=== PATIENT | female | born 1995 | race Caucasian/White ===

== ENCOUNTER 2017-07-07 18:43 | Emergency (ER) | payer OTHER ==
[2017-07-07 18:50] VITALS: BP 119/74; PULSE 75; TEMP 98.4; BMI 25.7
[2017-07-07] MEDS ORDERED: guaiFENesin/D-METHORPHAN HB 10 ML UNIT-DOSE CUPS PO ONE (18:53)
[2017-07-07] MEDS ORDERED: guaiFENesin/D-METHORPHAN HB 10 ML UNIT-DOSE CUPS ONE (18:58)
--- NOTE | 2017-07-07 19:29 | PDOC ---
History of Present Illness - General Chief Complaint: Cold Symptoms Stated Complaint: COUGH Time Seen by Provider: 07/07/17 18:45 - History of Present Illness Initial Comments: 07/07/17 19:24 "The patient is a 22 year old female with with no significant past medical history, who presents to the ED with a cough productive of greenish phlegm for 7 days. Patient states she has been taking nyquil with little to no alleviation. Patient denies chest pain, SOB, fever, chills, nausea, vomiting, diarrhea. Patient denies dysuria, frequency, hematuria. Patient denies recent travels. Patient denies smoking cigarettes. Allergies to meds: penicillin PCP: Dr. Capone " Past History - Past Medical History Allergies/Adverse Reactions: Allergies Allergy/AdvReac Type Severity Reaction Status Date / Time Penicillins Allergy Severe Rash Verified 09/28/16 21:18 Home Medications: Ambulatory Orders NK [No Known Home Medication] 07/07/17 Asthma: No Cancer: No Cardiac Disorders: No Diabetes: No HTN: No Seizures: No Thyroid Disease: No - Immunization History Immunization Up to Date: Yes - Suicide/Smoking/Psychosocial Hx Smoking History: Never smoked Have you smoked in the past 12 months: No Number of Cigarettes Smoked Daily: 0 Cigars Per Day: 0 Information on smoking cessation initiated: No Hx Alcohol Use: No Drug/Substance Use Hx: No Substance Use Type: None Hx Substance Use Treatment: No Review of Systems - Review of Systems Comments:: 07/07/17 19:25 "GENERAL/CONSTITUTIONAL: No fever or chills. No weakness. HEAD, EYES, EARS, NOSE AND THROAT: No change in vision. No ear pain or discharge. No sore throat. CARDIOVASCULAR: No chest pain or shortness of breath. RESPIRATORY: + cough, no wheezing, or hemoptysis. GASTROINTESTINAL: No nausea, vomiting, diarrhea or constipation. GENITOURINARY: No dysuria, frequency, or change in urination. MUSCULOSKELETAL: No joint or muscle swelling or pain. No neck or back pain. SKIN: No rash NEUROLOGIC: No headache, vertigo, loss of consciousness, or change in strength/ sensation. ENDOCRINE: No increased thirst. No abnormal weight change. HEMATOLOGIC/LYMPHATIC: No anemia, easy bleeding, or history of blood clots. ALLERGIC/IMMUNOLOGIC: No hives or skin allergy. " *Physical Exam - Vital Signs Last Vital Signs Temp Pulse Resp BP Pulse Ox 98.4 F 75 20 119/74 99 07/07/17 18:44 07/07/17 18:44 07/07/17 18:44 07/07/17 18:44 07/07/17 18:44 - Physical Exam Comments: 07/07/17 19:25 "GENERAL: Awake, alert, and fully oriented, in no acute distress HEAD: No signs of trauma EYES: PERRLA, EOMI, sclera anicteric, conjunctiva clear ENT: Auricles normal inspection, hearing grossly normal, nares patent, oropharynx clear without exudates. Moist mucosa NECK: Nontender, no stepoffs, Normal ROM, supple, no lymphadenopathy, JVD, or masses LUNGS: Breath sounds equal, clear to auscultation bilaterally. No wheezes, and no crackles HEART: Regular rate and rhythm, normal S1 and S2, no murmurs, rubs or gallops ABDOMEN: Soft, nontender, normoactive bowel sounds. No guarding, no rebound. No masses EXTREMITIES: Normal range of motion, no edema. No clubbing or cyanosis. No cords, erythema, or tenderness NEUROLOGICAL: Cranial nerves II through XII intact. 5/5 strength and sensation in all extremities, Normal speech, normal gait SKIN: Warm, Dry, normal turgor, no rashes or lesions noted. " ED Treatment Course - RADIOLOGY Radiology Studies Ordered: Category Date Time Status CHEST PA & LAT [RAD] Stat Radiology 07/07/17 18:52 Stop Req - Medications Given in the ED: ED Medications Discontinued Medications Generic Name Dose Route Start Last Admin Trade Name Freq PRN Reason Stop Dose Admin Guaifenesin 10 ml 07/07/17 18:53 07/07/17 18:59 Robitussin Dm - PO 07/07/17 18:54 10 ml ONCE ONE Administration Medical Decision Making - Medical Decision Making 07/07/17 19:26 22 F with cough x 7 days. Likely viral URI vs bronchitis. - CXR to r/o PNA - supportive care 07/07/17 19:26 Pt refusing CXR as she does not wish to wait. Given clear lung exam, pt's well appearance, and lack of fevers, my suspicion for PNA is very low. Pt clinically does not have signs of PNA. I feel it is reasonable to forego imaging at this time. Pt has PMD f/u with Dr. Capone and will see him in clinic. *DC/Admit/Observation/Transfer Diagnosis at time of Disposition: Bronchitis - Discharge Dispostion Disposition: HOME - Patient Instructions Printed Discharge Instructions: DI for Acute Bronchitis Additional Instructions: You probably have bronchitis. However, because you did not wish to get a chest X -ray, we cannot definitively rule out pneumonia. If you continue to feel ill and do not improve after another day or two, return to the ER for further evaluation. Call Dr. Capone tomorrow to set up an appointment within the next week. - Attestations Physician Attestion: 07/07/17 19:31 I, Dr. Prabhu Estrada MD, attest that this document has been prepared under my direction and personally reviewed by me in its entirety. I further attest, that it accurately reflects all work, treatment, procedures and medical decision -making performed by me.
== END 2017-07-07 19:32 | disposition home or self-care (01) ==
LOC: FER 18:43
DX: J40 Bronchitis, not specified as acute or chronic (principal)
CPT/HCPCS: 99281-25

== ENCOUNTER 2017-07-25 15:22 | Emergency (ER) | payer OTHER ==
[2017-07-25 15:31] VITALS: BP 114/67; PULSE 94; TEMP 98.3; BMI 25.7
--- NOTE | 2017-07-25 17:56 | PDOC ---
History of Present Illness - General Chief Complaint: Cold Symptoms Stated Complaint: SOB, WHEEZING Time Seen by Provider: 07/25/17 16:45 History Source: Patient Exam Limitations: No Limitations - History of Present Illness Initial Comments: 07/25/17 17:55 This is a 22-year-old female without significant past medical history presents to the emergency department 3 weeks of productive cough and body aches. The patient reports her daughter was expecting similar symptoms approximately 1 month ago and was diagnosed with pneumonia and treated. Patient denies any chest pain, back pain, nausea vomiting, belly pain, dizziness. The patient does report some posttussive nausea but no vomiting when she experiences. Patient has not tried taking any [id number] medications including Tylenol, Motrin or any nasal decongestants. Severity: reports: mild Possible Cause: Yes: no prior episodes Associated Symptoms: reports: denies symptoms Past History - Past Medical History Allergies/Adverse Reactions: Allergies Allergy/AdvReac Type Severity Reaction Status Date / Time Penicillins Allergy Severe Rash Verified 07/25/17 15:30 Home Medications: Ambulatory Orders NK [No Known Home Medication] 07/07/17 Asthma: No Cancer: No Cardiac Disorders: No Diabetes: No HTN: No Seizures: No Thyroid Disease: No - Immunization History Immunization Up to Date: Yes - Suicide/Smoking/Psychosocial Hx Smoking History: Never smoked Have you smoked in the past 12 months: No Number of Cigarettes Smoked Daily: 0 Cigars Per Day: 0 Hx Alcohol Use: Yes (SOCIAL) Drug/Substance Use Hx: No Substance Use Type: None Hx Substance Use Treatment: No Review of Systems - Review of Systems Able to Perform ROS?: Yes Is the patient limited Georgian proficient: No Constitutional: No: Symptoms Reported HEENTM: Yes: See HPI Respiratory: Yes: See HPI Cardiac (ROS): No: Symptoms Reported ABD/GI: No: Symptoms Reported : No: Symptoms Reported Musculoskeletal: No: Symptoms Reported Integumentary: No: Symptoms Reported Neurological: No: Symptoms reported *Physical Exam - Vital Signs Last Vital Signs Temp Pulse Resp BP Pulse Ox 98.3 F 94 H 20 114/67 98 07/25/17 15:27 07/25/17 15:27 07/25/17 15:27 07/25/17 15:27 07/25/17 15:27 - Physical Exam General Appearance: Yes: Appropriately Dressed. No: Apparent Distress HEENT: positive: Pharyngeal Erythema, Tonsillar Erythema. negative: Tonsillar Exudate Neck: positive: Trachea midline, Supple Respiratory/Chest: positive: Lungs Clear, Normal Breath Sounds. negative: Respiratory Distress, Accessory Muscle Use Cardiovascular: positive: Regular Rhythm, Regular Rate, S1, S2. negative: Murmur Gastrointestinal/Abdominal: positive: Normal Bowel Sounds, Soft. negative: Tender Musculoskeletal: positive: Normal Inspection. negative: CVA Tenderness Extremity: positive: Normal Capillary Refill, Normal Inspection, Normal Range of Motion Integumentary: positive: Normal Color, Dry, Warm Neurologic: positive: contract administrator II-XII NML intact, Fully Oriented, Alert, Normal Mood/ Affect, Normal Response, Motor Strength 02/05 Medical Decision Making - Medical Decision Making 07/25/17 17:54 A/P: This is a 22-year-old female without significant past medical history presents to the emergency department 3 weeks of productive cough and body aches. The patient reports her daughter was expecting similar symptoms approximately 1 month ago and was diagnosed with pneumonia and treated. Patient denies any chest pain, back pain, nausea vomiting, belly pain, dizziness. The patient does report some posttussive nausea but no vomiting when she experiences. Patient has not tried taking any gwcy-vuu-dysrebm medications including Tylenol, Motrin or any nasal decongestants. Patient is alert and oriented 3 in no apparent distress. Oropharynx with tonsillar edema and no exudates present. Trachea midline neck supple no lymphadenopathy present. Lungs clear to auscultation bilaterally. Respirations even and unlabored. Regular rate and rhythm. S1 and S2 presents no murmurs, rub or gallop. Abdomen soft nontender nondistended. Positive bowel sounds. Differential diagnoses include upper respiratory infection, influenza, pneumonia I will give a urine test and then do a chest x-ray. Patient is refusing influenza testing at this time. I will then reassess the patient. 07/25/17 20:01 Chest x-ray wet read by me. No acute pulmonary process is identified. Visualized osseous structures intact. Given negative x-ray and patient's refusal to have influenza testing done, it is likely that the patient has a viral upper respiratory infection. Patient has been counseled that viral infections contain an extended period time to treat as it is her bodies reaction to the illness that will eventually rid her body of the illness. Patient instructed to take Tylenol or Motrin as needed for pain. Patient is instructed to maintain good oral hydration and to take nasal decongestants as directed by manufacturers instructions. *DC/Admit/Observation/Transfer Diagnosis at time of Disposition: Upper respiratory tract infection Qualifiers: URI type: unspecified viral URI Qualified Code(s): J06.9 - Acute upper respiratory infection, unspecified; J06.9 - Acute upper respiratory infection, unspecified; B97.89 - Other viral agents as the cause of diseases classified elsewhere; B97.89 - Other viral agents as the cause of diseases classified elsewhere - Discharge Dispostion Disposition: HOME Condition at time of disposition: Stable Admit: No - Referrals Referrals: Foreign Capone MD [Primary Care Provider] - - Patient Instructions Additional Instructions: Drink plenty of fluids. Take Tylenol or Motrin as needed for fever or pain area follow manufacturers instructions for dosage. You may take Sudafed or phenylephrine to help relieve nasal congestion. Using Viki pot to help with nasal congestion. Humidified air may help decrease nasal congestion and make breathing a little bit easier. Return to emergency department for fevers, chills, worsening shortness of breath , worsening cough, chest pain or any other concerns. Thank you very much for choosing us to provide for your emergent healthcare needs
== END 2017-07-25 20:05 | disposition home or self-care (01) ==
LOC: JERFT 15:22
DX: J06.9 Acute upper respiratory infection, unspecified (principal); B97.89 Other viral agents as the cause of diseases classified elsewhere
CPT/HCPCS: 71020-TC; 84703; 99281-25

== ENCOUNTER 2018-03-03 22:01 | Emergency (ER) | payer OTHER ==
--- NOTE | 2018-03-03 22:08 | PDOC ---
History of Present Illness - General Chief Complaint: Urinary Problem Stated Complaint: POSSIBLE UTI Time Seen by Provider: 03/03/18 22:08 History Source: Patient - History of Present Illness Initial Comments: 03/03/18 22:21 Chief complaint: Urinary pain, nausea Patient is a healthy 23-year-old female with 1 sexual partner, does not use control or condoms whose last period was "last month" who came to the ER for 1 day of urinary frequency, burning in 2-3 days of nausea. No vomiting. No discharge and no pain. No fever. no discharge GENERAL/CONSTITUTIONAL: No fever, weakness. dizziness HEAD, EYES, EARS, NOSE AND THROAT: No change in vision. No ear pain or discharge. No sore throat. CARDIOVASCULAR: No chest pain RESPIRATORY: No shortness of breath or cough GASTROINTESTINAL: No pain, +nausea, no: vomiting, diarrhea or constipation GENITOURINARY: +dysuria, + frequency, no discharge MUSCULOSKELETAL: No neck or back pain SKIN: No rash NEUROLOGIC: No headache, vertigo, loss of consciousness, or loss of sensation. GENERAL: The patient is awake, alert, and fully oriented, in no acute distress. HEAD: Normal with no signs of trauma. EYES: Pupils equal, round and reactive to light, sclera anicteric, conjunctiva clear. ENT: pharynx: no erythema, no exudate, uvula midline NECK: supple CHEST: clear, nontender, rr ABD: soft, nontender EXTREMITIES: Normal range of motion, no edema. NEUROLOGICAL: Normal speech, normal gait. SKIN: Warm, Dry 03/03/18 22:40 Past History - Past Medical History Allergies/Adverse Reactions: Allergies Allergy/AdvReac Type Severity Reaction Status Date / Time Penicillins Allergy Severe Rash Verified 03/03/18 22:04 Home Medications: Ambulatory Orders NK [No Known Home Medication] 07/07/17 Asthma: No Cancer: No Cardiac Disorders: No Diabetes: No HTN: No Seizures: No Thyroid Disease: No - Immunization History Immunization Up to Date: Yes - Suicide/Smoking/Psychosocial Hx Smoking History: Never smoked Have you smoked in the past 12 months: No Number of Cigarettes Smoked Daily: 0 Cigars Per Day: 0 Information on smoking cessation initiated: No Hx Alcohol Use: No Drug/Substance Use Hx: No Substance Use Type: None Hx Substance Use Treatment: No *Physical Exam - Vital Signs Last Vital Signs Temp Pulse Resp BP Pulse Ox 98.3 F 87 16 112/64 100 03/03/18 22:03 03/03/18 22:03 03/03/18 22:03 03/03/18 22:03 03/03/18 22:03 Medical Decision Making - Medical Decision Making 03/03/18 22:29 [id number] female, who has 2-3 days of nausea, 1 day of dysuria, urinary frequency. One sexual partner, no control and has no condom use. No fever , no vomiting, no pain. Physical exam is non-concerning, patient will have urine done, UA, STD screenings and urine culture Urine is positive 03/03/18 22:44 ua is negative. pt counseled in vitamins *DC/Admit/Observation/Transfer Diagnosis at time of Disposition: Qualifiers: Weeks of gestation: unspecified Qualified Code(s): Z34.90 - Encounter for supervision of normal , unspecified, unspecified trimester - Discharge Dispostion Disposition: HOME Condition at time of disposition: Stable - Referrals Referrals: Foreign Capone MD [Primary Care Provider] - - Patient Instructions Printed Discharge Instructions: Managing Symptoms of Additional Instructions: It is very important for you to take vitamins. This helps the spinal cord development in your child You can either by them in the pharmacy or you can call your STEAM OVEN OPERATOR to send a prescription for a specific brand that they like Follow-up with your STEAM OVEN OPERATOR as soon as possible. Return to the ER if fever or feeling sicker - Post Discharge Activity
[2018-03-03 22:13] VITALS: BP 112/64; PULSE 87; TEMP 98.3; BMI 25.7
[2018-03-03 22:26] LABS: HCG,QUALITATIVE URINE POSITIVE
[2018-03-03 22:28] LABS: URINE APPEARANCE CLEAR; URINE BILIRUBIN NEGATIVE (<2.0 mg/dL); URINE COLOR STRAW; URINE GLUCOSE (UA) NEGATIVE (NEGATIVE); URINE KETONE NEGATIVE (NEGATIVE); URINE LEUK ESTERASE NEGATIVE (NEGATIVE); URINE NITRITE NEGATIVE (NEGATIVE); URINE PROTEIN NEGATIVE (NEGATIVE); URINE UROBILINOGEN NEGATIVE mg/dL (0.2-1.0)
== END 2018-03-03 22:45 | disposition home or self-care (01) ==
LOC: JERFT 22:01 → JER 22:01 → JERFT 22:45
DX: Z34.90 Encounter for supervision of normal pregnancy, unspecified, unspecified trimester (principal); Z3A.00 Weeks of gestation of pregnancy not specified
CPT/HCPCS: 36415; 81003; 84703; 87086; 87491; 87591; 99281-25

== ENCOUNTER 2018-08-29 10:14 | Emergency (ER) | payer SELFPAY ==
[2018-08-29 10:44] VITALS: BP 104/62; PULSE 80; TEMP 98.1; BMI 25.7
--- NOTE | 2018-08-29 11:46 | PDOC ---
History of Present Illness - General History Source: Patient Exam Limitations: No Limitations - History of Present Illness Initial Comments: 08/29/18 12:05 The patient is a 23 year old female, A1, 11 weeks , with a significant past medical history of, who presents to the emergency department with complaint of abdominal cramping and vaginal bleeding since 9:30am. She states her symptoms felt period-like. She states it was red and soaked, not spotting. She also reports some nausea. She reportedly had a recent ultrasound showing a live IUP. LMP 06/09/18 The patient denies chest pain, shortness of breath, headache and dizziness. The patient denies fever, chills, vomit, diarrhea and constipation. The patient denies dysuria, frequency, urgency and hematuria. Allergies: NKDA PCP - Dr. Foreign Capone Crop Picker - Dr. Charu Jerry <Amparo Maciel - Last Filed: 08/29/18 13:02> <Raul Barclay - Last Filed: 08/29/18 16:25> - General Chief Complaint: Vaginal Bleeding Stated Complaint: VAGNAL BLEED (11 WKS ) Time Seen by Provider: 08/29/18 11:10 Past History <Amparo Maciel - Last Filed: 08/29/18 13:02> - Past Medical History Asthma: No Cancer: No Cardiac Disorders: No COPD: No Diabetes: No HTN: No Seizures: No Thyroid Disease: No - Immunization History Immunization Up to Date: Yes - Suicide/Smoking/Psychosocial Hx Smoking History: Never smoked Have you smoked in the past 12 months: No Number of Cigarettes Smoked Daily: 0 Cigars Per Day: 0 Hx Alcohol Use: No Drug/Substance Use Hx: No Substance Use Type: None Hx Substance Use Treatment: No <Raul Barclay - Last Filed: 08/29/18 16:25> - Past Medical History Allergies/Adverse Reactions: Allergies Allergy/AdvReac Type Severity Reaction Status Date / Time Penicillins Allergy Severe Rash Verified 08/29/18 10:41 Home Medications: Ambulatory Orders Nitrofurantoin Monohyd/M-Cryst [Macrobid -] 100 mg PO BID #14 capsule 08/29/18 Review of Systems - Review of Systems Able to Perform ROS?: Yes Comments:: 08/29/18 12:05 Constitutional: No recent illness; no fever ENT: No sore throat Cardiovascular: No palpitations; no chest pain Pulmonary: No cough; no trouble breathing Gastrointestinal: (+) lower abdominal cramping, vaginal bleeding, and nausea in ; no vomiting; no diarrhea Genitourinary: No urinary problems; no hematuria Skin: No rash Lymph system: No swollen glands Musculoskeletal: No joint swelling Neurological: No weakness; oo numbness; No Headache; no vertigo; no lightheadedness Psychiatric:No anxiety; no depression ROS: A complete review of 10 out of 10 review of systems is taken and is negative apart from what is previously mentioned below and in the HPI. <Amparo Maciel - Last Filed: 08/29/18 13:02> *Physical Exam - Vital Signs Last Vital Signs Temp Pulse Resp BP Pulse Ox 98.1 F 80 16 104/62 98 08/29/18 10:41 08/29/18 10:41 08/29/18 10:41 08/29/18 10:41 08/29/18 10:41 - Physical Exam Comments: 08/29/18 12:05 Vitals: Triage vital signs reviewed General Appearance: No acute distress, well nourished, well developed Head: Atraumatic Eyes: Pupils equal reactive round, extraocular movement intact Neck: Supple; No nuchal rigidity Chest Wall: Nontender Cardiac: Regular rate and rhythm, no murmurs, no rubs, no gallops Lungs: Clear to auscultation bilateral, good air movement bilaterally Abdomen: Soft, nondistended, normal bowel sounds, nontender to palpation Pelvic: (+) no CMT. No blood pooling in vaginal vault. No adnexal tenderness Extremities: Full range of motion to all extremities, no cyanosis, clubbing, or edema Skin: Warm and dry, no rashes or lesions, no rash, no petechiae Neuro: AOX3; Cranial Nerves 2-12 grossly intact, Strength intact to all extremities, Sensation intact to all extremities, gait normal Psych: Normal mood, normal affect <Amparo Maciel - Last Filed: 08/29/18 13:02> - Vital Signs Last Vital Signs Temp Pulse Resp BP Pulse Ox 98.1 F 80 16 104/62 98 08/29/18 10:41 08/29/18 10:41 08/29/18 10:41 08/29/18 10:41 08/29/18 10:41 <Raul Barclay - Last Filed: 08/29/18 16:25> ED Treatment Course - LABORATORY CBC & Chemistry Diagram: 08/29/18 11:25 08/29/18 11:25 <Amparo Maciel - Last Filed: 08/29/18 13:02> - LABORATORY CBC & Chemistry Diagram: 08/29/18 11:25 08/29/18 11:25 - RADIOLOGY Radiology Studies Ordered: Category Date Time Status TRANSVAGINAL ULTRASOUND US [US] Stat Ultrasound 08/29/18 11:11 Ordered <Raul Barclay - Last Filed: 08/29/18 16:25> Medical Decision Making - Medical Decision Making 08/29/18 13:41 11 weeks with vaginal bleeding we'll check labs type and screen observe and reassess Pt. 11 wks . Ultrasound shows single live gestation intrauterine small subchorionic hemorrhage Urinalysis positive for UTI Findings discussed with patient. No indication for RhoGAM. Will follow up with LABEL REWINDER this week. We'll treat with Macrobid. Patient provided with copies of results Findings, the need for follow-up and strict return instructions discussed with patient. 08/29/18 16:25 <Raul Barclay - Last Filed: 08/29/18 16:25> *DC/Admit/Observation/Transfer - Attestations Scribe Attestion: 08/29/18 12:05 Documentation prepared by Amparo Maciel, acting as emergency medical dispatcher for Raul Barclay MD <Amparo Maciel - Last Filed: 08/29/18 13:02> - Discharge Dispostion Decision to Admit order: No <Raul Barclay - Last Filed: 08/29/18 16:25> Diagnosis at time of Disposition: Subchorionic hematoma in first trimester Qualifiers: Fetus number: single or unspecified fetus Qualified Code(s): O41.8X10 - Other specified disorders of amniotic fluid and membranes, first trimester, not applicable or unspecified - Discharge Dispostion Disposition: HOME - Prescriptions Prescriptions: Nitrofurantoin Monohyd/M-Cryst [Macrobid -] 100 mg PO BID #14 capsule - Referrals Referrals: Foreign Capone MD [Primary Care Provider] - - Patient Instructions Printed Discharge Instructions: Threatened Additional Instructions: Drink plenty of fluids. Macrobid as prescribed. Follow-up with your LABEL REWINDER in 1- 2 days. Return to ED for any severe abdominal pain heavy vaginal bleeding greater than 2 pads an hour for any concerns. - Post Discharge Activity Forms/Work/School Notes: Back to Work
[2018-08-29 11:51] LABS: BASO % 0.4 % (0-2.0); EOS % 1.6 % (0-4.5); HEMATOCRIT 37.2 % (32.4-45.2); HEMOGLOBIN 12.9 GM/dL (10.7-15.3); MCH 29.3 pg (25.7-33.7); MCHC 34.8 g/dl (32.0-36.0); MEAN CELL VOLUME 84.2 fl (80-96); MEAN PLT VOLUME 9.1 fl (7.5-11.1); MONO % 5.9 % (3.8-10.2); NEUT % 71.1 % (42.8-82.8); PLATELET COUNT 262 K/MM3 (134-434); RBC 4.42 M/mm3 (3.60-5.2); RDW 13.5 % (11.6-15.6)
[2018-08-29 12:25] LABS: URINE APPEARANCE SLCLOUDY; URINE BILIRUBIN NEGATIVE (<2.0 mg/dL); URINE COLOR YELLOW; URINE GLUCOSE (UA) NEGATIVE (NEGATIVE); URINE KETONE NEGATIVE (NEGATIVE); URINE LEUK ESTERASE 1+ (NEGATIVE); URINE NITRITE NEGATIVE (NEGATIVE); URINE PROTEIN 1+ (NEGATIVE); URINE UROBILINOGEN NEGATIVE mg/dL (0.2-1.0)
[2018-08-29 12:29] LABS: EPI CELLS MODERATE /HPF (FEW); URINE MUCUS RARE
[2018-08-29 12:54] LABS: ALBUMIN 3.5 g/dl (3.4-5.0); ALK PHOS 46 U/L (45-117); ANION GAP 8 MMOL/L (8-16); BILIRUBIN,TOTAL 0.4 mg/dL (0.2-1); BLOOD UREA NITROGEN 8 mg/dL (7-18); CALCIUM 8.8 mg/dL (8.5-10.1); CHLORIDE 104 mmol/L (98-107); CO2 25 mmol/L (21-32); CREATININE 0.6 mg/dL (0.55-1.3); GLUCOSE,RANDOM 75 mg/dL (74-106); SGOT/AST 10 U/L (15-37); SGPT/ALT 14 U/L (13-61); SODIUM 138 mmol/L (136-145); TOT PROT 7.1 g/dl (6.4-8.2)
== END 2018-08-29 13:56 | disposition home or self-care (01) ==
LOC: JER 10:14
DX: O26.891 Other specified pregnancy related conditions, first trimester (principal); O41.8X10 Other specified disorders of amniotic fluid and membranes, first trimester, not applicable or unspecified; O23.41 Unspecified infection of urinary tract in pregnancy, first trimester; Z3A.11 11 weeks gestation of pregnancy
CPT/HCPCS: 36415; 76815-TC; 80053; 81003; 81015; 84702; 85025; 86850; 86900; 86901; 87086; 99282-25

== ENCOUNTER 2019-04-08 13:19 | Emergency (ER) | payer OTHER ==
[2019-04-08 13:42] VITALS: BP 105/71; PULSE 95; TEMP 98.3; BMI 25.1
--- NOTE | 2019-04-08 14:40 | PDOC ---
History of Present Illness - General Chief Complaint: Urinary Problem Stated Complaint: URINARY PROBLEM Time Seen by Provider: 04/08/19 14:22 - History of Present Illness Initial Comments: 04/08/19 14:40 24-year-old female without comorbidities presents for 1 day of dysuria without systemic symptoms. Past History - Past Medical History Allergies/Adverse Reactions: Allergies Allergy/AdvReac Type Severity Reaction Status Date / Time Penicillins Allergy Severe Rash Verified 04/08/19 13:42 Home Medications: Ambulatory Orders Nitrofurantoin Monohyd/M-Cryst [Macrobid -] 100 mg PO BID #14 capsule 08/29/18 Ciprofloxacin HCl [Cipro] 500 mg PO BID #6 tablet 04/08/19 Asthma: No Cancer: No Cardiac Disorders: No COPD: No Diabetes: No HTN: No Seizures: No Thyroid Disease: No - Reproductive History (#): 3 - Immunization History Immunization Up to Date: Yes - Suicide/Smoking/Psychosocial Hx Smoking History: Never smoked Have you smoked in the past 12 months: No Number of Cigarettes Smoked Daily: 0 Cigars Per Day: 0 Hx Alcohol Use: No Drug/Substance Use Hx: No Substance Use Type: None Hx Substance Use Treatment: No Review of Systems - Review of Systems Constitutional: No: Chills, Fever, Malaise, Night Sweats : Yes: Burning, Dysuria *Physical Exam - Vital Signs Last Vital Signs Temp Pulse Resp BP Pulse Ox 98.3 F 95 H 18 105/71 98 04/08/19 13:39 04/08/19 13:39 04/08/19 13:39 04/08/19 13:39 04/08/19 13:39 - Physical Exam Comments: 04/08/19 14:40 HEAD: NC/AT EYES: Conjuntiva clear MS: Full ROM in all joints without edema NEUROLOGIC: No gross sensory or motor deficits, NVID SKIN: Normal color and temperature no lesions or rashes Medical Decision Making - Medical Decision Making 04/08/19 15:07 cipro for UTI *DC/Admit/Observation/Transfer Diagnosis at time of Disposition: Cystitis - Discharge Dispostion Disposition: HOME Condition at time of disposition: Stable Decision to Admit order: No - Prescriptions Prescriptions: Ciprofloxacin HCl [Cipro] 500 mg PO BID #6 tablet - Referrals Referrals: Foreign Capone MD [Primary Care Provider] - - Patient Instructions Printed Discharge Instructions: Urinary Tract Infection Additional Instructions: Please take the antibiotics as directed. Return to the emergency room for worsening symptoms. Follow-up with her primary care physician without fail in 1- 2 days for further evaluation and treatment options. - Post Discharge Activity
[2019-04-08 14:54] LABS: HCG,QUALITATIVE URINE Negative
[2019-04-08 14:58] LABS: EPI CELLS 1.3 /HPF (0-5/HPF); HYALINE CASTS 4 /lpf (0-8); URINE APPEARANCE CLOUDY; URINE BACTERIA 64.4 /hpf (NEGATIVE); URINE BILIRUBIN NEGATIVE (NEGATIVE); URINE COLOR YELLOW; URINE GLUCOSE (UA) NEGATIVE (NEGATIVE); URINE KETONE NEGATIVE (NEGATIVE); URINE LEUK ESTERASE 2+ (NEGATIVE); URINE NITRITE NEGATIVE (NEGATIVE); URINE PROTEIN 3+ (NEGATIVE); URINE RBC 567 /hpf (0-4); URINE WBC 516 /hpf (0-5)
== END 2019-04-08 15:21 | disposition home or self-care (01) ==
LOC: JERFT 13:19
DX: N30.00 Acute cystitis without hematuria (principal)
CPT/HCPCS: 81003; 84703; 87086; 99281-25

== ENCOUNTER 2019-10-21 10:22 | Emergency (ER) | payer OTHER ==
[2019-10-21 10:34] VITALS: TEMP 98; BMI 26.2
[2019-10-21] MEDS ORDERED: ACETAMINOPHEN 1000 MG/100 ML VIAL (NON FORMULARY) IVPB ONE (10:45)
[2019-10-21] MEDS ORDERED: ONDANSETRON *ODT* 4 MG TABLET SL ONE (10:45)
[2019-10-21] MEDS ORDERED: LACTATED RINGERS SOLUTION 1,000 ML IV STA (10:45)
[2019-10-21] MEDS ORDERED: FAMOTIDINE 20 MG/50 ML IVPB 20 MG/50 ML MG IVPB ONE (10:45)
[2019-10-21] MEDS ORDERED: ACETAMINOPHEN INJECTION 100 ML IVPB ONE (10:50)
[2019-10-21] MEDS ORDERED: ONDANSETRON 4 MG/2 ML VIAL ONE (10:50)
--- NOTE | 2019-10-21 10:56 | PDOC ---
History of Present Illness - General Chief Complaint: Nausea/Vomiting Stated Complaint: 10 W PREG/DIARRHEA/VOMITING Time Seen by Provider: 10/21/19 10:39 History Source: Patient Exam Limitations: Clinical Condition - History of Present Illness Initial Comments: 10/21/19 10:51 Patient presented with complaint of sudden onset of nausea, vomiting and diarrhea upon wake this morning. Patient reported eating carry rise from a restaurant last night. Patient reported vomiting 3 times today and had 3 episodes of diarrhea. Patient reported diffuse abdominal pain with increased pain to epigastric region from vomiting. Denies fever, chills, body aches, sore throat, dizziness, chest pain, shortness of breath. Denies blood in stool or mucus in stool. Denies vaginal bleeding or discharge. Patient denies any other symptoms. Patient has not taken anything for symptoms Is this a multiple visit Asthma Patient?: No Past History - Past Medical History Allergies/Adverse Reactions: Allergies Allergy/AdvReac Type Severity Reaction Status Date / Time Penicillins Allergy Severe Rash Verified 10/21/19 10:35 Home Medications: Ambulatory Orders Famotidine [Pepcid -] 40 mg PO DAILY #7 tablet 10/21/19 Mag Hydrox/Aluminum Hyd/Simeth [Maalox Advanced Suspension] 30 ml PO Q8H PRN # 200 ml 10/21/19 Nitrofurantoin Monohyd/M-Cryst [Macrobid -] 100 mg PO BID #14 capsule 10/21/19 Ondansetron [Zofran *Odt*] 4 mg SL Q8H PRN #21 od.tablet 10/21/19 Asthma: No Cancer: No Cardiac Disorders: No COPD: No Diabetes: No HTN: No Seizures: No Thyroid Disease: No - Reproductive History (#): 3 - Immunization History Immunization Up to Date: Yes - Psycho Social/Smoking Cessation Hx Smoking History: Unknown if ever smoked Have you smoked in the past 12 months: No Number of Cigarettes Smoked Daily: 0 Cigars Per Day: 0 Information on smoking cessation initiated: No Hx Alcohol Use: No Drug/Substance Use Hx: No Substance Use Type: None Hx Substance Use Treatment: No Review of Systems - Review of Systems Able to Perform ROS?: Yes Is the patient limited Italian proficient: No Constitutional: No: Chills, Fever, Malaise HEENTM: No: Symptoms Reported, See HPI, Eye Pain, Blurred Vision, Tearing, Recent change in vision, Double Vision, Cataracts, Ear Pain, Ocular Prothesis, Ear Discharge, Nose Pain, Nose Congestion, Tinnitus, Nose Bleeding, Hearing Loss , Throat Pain, Throat Swelling, Mouth Pain, Dental Problems, Difficulty Swallowing, Mouth Swelling, Other Respiratory: No: Symptoms reported, See HPI, Cough, Orthopnea, Shortness of Breath, SOB with Exertion, SOB at Rest, Stridor, Wheezing, Productive cough, Hemoptysis, Other Cardiac (ROS): No: Symptoms Reported, See HPI, Chest Pain, Edema, Irregular Heart Rate, Lightheadedness, Palpitations, Syncope, Chest Tightness, Other ABD/GI: Yes: Symptoms Reported, See HPI, Diarrhea, Nausea, Vomiting, Abdominal cramping. No: Abdominal Distended, Abd. Pain w/ defecation, Blood Streaked Bowels, Constipated, Difficulty Swallowing, Poor Appetite, Rectal Bleeding, Indigestion : No: Symptoms Reported, Burning, Dysuria, Discharge, Frequency, Flank Pain, Urgency, Other (vaginal bleeding) Musculoskeletal: No: Symptoms Reported Integumentary: No: Symptoms Reported Neurological: No: Symptoms reported, Headache, Tingling, Weakness All Other Systems: Reviewed and Negative *Physical Exam - Vital Signs Last Vital Signs Temp Pulse Resp BP Pulse Ox 98.0 F 107 H 16 109/63 100 10/21/19 10:32 10/21/19 10:32 10/21/19 10:32 10/21/19 10:32 10/21/19 10:32 - Physical Exam 10/21/19 10:55 GENERAL: Well developed, well nourished. Awake and alert. No acute distress. HEENT: Normocephalic, atraumatic. PERRLA, EOMI. No conjunctival pallor. Sclera are non-icteric. Moist mucous membranes. Oropharynx is clear. NECK: Supple. Full ROM. CARDIOVASCULAR: Regular rate and rhythm. No murmurs, rubs, or gallops. Distal pulses are 2+ and symmetric. PULMONARY: No evidence of respiratory distress. Lungs clear to auscultation bilaterally. No wheezing, rales or rhonchi. ABDOMINAL: Soft. Mild epigastric tenderness. Non-distended. No rebound or guarding. No organomegaly. Normoactive bowel sounds. MUSCULOSKELETAL Normal range of motion at all joints. SKIN: Warm and dry. Normal capillary refill. No rashes. No jaundice. No cyanosis NEUROLOGICAL: Alert, awake, appropriate. Gait is normal without ataxia. PSYCHIATRIC: Cooperative. Good eye contact. Appropriate mood General Appearance: Yes: Nourished, Appropriately Dressed. No: Mild Distress ED Treatment Course - LABORATORY CBC & Chemistry Diagram: 10/21/19 11:00 10/21/19 11:00 Medical Decision Making - Medical Decision Making 10/21/19 10:52 Patient presented with complaint of sudden onset of nausea, vomiting and diarrhea upon wake this morning. Patient reported eating carry rise from a restaurant last night. Patient reported vomiting 3 times today and had 3 episodes of diarrhea. Patient reported diffuse abdominal pain with increased pain to epigastric region from vomiting. Denies fever, chills, body aches, sore throat, dizziness, chest pain, shortness of breath. Patient denies any other symptoms. Patient has not taken anything for symptoms Exam significant for mild epigastric tenderness without guarding or rebound. Normal cardio exam and normal lung exam. No pharyngeal erythema. Symptoms likely viral gastroenteritis versus less likely bacterial gastroenteritis. CBC, CMP and lipase lab ordered. IV hydration with 1 L lactated Ringer's, Zofran 4 mg sublingual ordered for nausea and vomiting and Pepcid 20 mg IV ordered for abdominal discomfort. Tylenol 1 g IV ordered for abdominal pain. Will do abdominal ultrasound to rule out cholecystitis. Reassess after labs and imaging and meds 10/21/19 14:01 CBC and chemistry lab unremarkable. Patient reports still having mild nausea. Reglan 10 mg IV ordered for nausea. Patient reported complete improvement abdominal pains. Patient pending ultrasound results 10/21/19 14:49 Abdominal ultrasound unremarkable. Pelvic ultrasound shows live IUP of 10 weeks 3 days with heart rate of 179 bpm. Patient reported improvement in nausea with Reglan and stable for discharge on Zofran PRN for nausea and vomiting and Maalox for abdominal discomfort with advised to increase fluid intake and follow-up with primary care Discharge - Discharge Information Problems reviewed: Yes Clinical Impression/Diagnosis: Gastroenteritis, 10 weeks gestation of Nausea & vomiting Qualifiers: Vomiting type: unspecified Vomiting Intractability: non-intractable Qualified Code(s): R11.2 - Nausea with vomiting, unspecified UTI (urinary tract infection) Qualifiers: Urinary tract infection type: acute cystitis Hematuria presence: without hematuria Qualified Code(s): N30.00 - Acute cystitis without hematuria Condition: Improved Disposition: HOME - Admission No - Additional Discharge Information Prescriptions: Famotidine [Pepcid -] 40 mg PO DAILY #7 tablet Mag Hydrox/Aluminum Hyd/Simeth [Maalox Advanced Suspension] 30 ml PO Q8H PRN # 200 ml PRN Reason: abdominal discomfort Nitrofurantoin Monohyd/M-Cryst [Macrobid -] 100 mg PO BID #14 capsule Ondansetron [Zofran *Odt*] 4 mg SL Q8H PRN #21 od.tablet PRN Reason: vomiting - Follow up/Referral Referrals: Foreign Capone MD [Primary Care Provider] - - Patient Discharge Instructions Patient Printed Discharge Instructions: DI for Viral Gastroenteritis -- Adult Additional Instructions: Your blood work is normal. Your urine shows small bacteria which you are being treated for UTI. Your ultrasound is normal and shows normal with live baby. Your symptoms likely caused by viral stomach infection. Take prescribed medication as prescribed for abdominal discomfort and vomiting. Increase fluid intake. Follow-up with your primary care. Come back to emergency room if worsening abdominal pain, vaginal bleeding, dizziness. - Post Discharge Activity
[2019-10-21] MEDS ORDERED: MAG HYDROX/AL HYDROX/SIMETH 30 ML UNIT-DOSE CUP PO ONE (11:07)
[2019-10-21 11:30] LABS: BASO % 0.1 % (0-2.0); EOS % 0.3 % (0-4.5); EPI CELLS 16.8 /HPF (0-5/HPF); HEMATOCRIT 40.5 % (32.4-45.2); HEMOGLOBIN 13.4 GM/dL (10.7-15.3); HYALINE CASTS 13 /lpf (0-8); LYMPH % 4.6 % (8-40); MCH 28.2 pg (25.7-33.7); MCHC 33.1 g/dl (32.0-36.0); MEAN CELL VOLUME 85.3 fl (80-96); MEAN PLT VOLUME 9.1 fl (7.5-11.1); MONO % 5.1 % (3.8-10.2); NEUT % 89.9 % (42.8-82.8); PH,URINE 5.5 (5.0-8.0); PLATELET COUNT 207 K/MM3 (134-434); RBC 4.74 M/mm3 (3.60-5.2); RDW 13.1 % (11.6-15.6); URINE APPEARANCE CLOUDY; URINE BACTERIA 326.4 /hpf (NEGATIVE); URINE BILIRUBIN NEGATIVE (NEGATIVE); URINE COLOR YELLOW; URINE GLUCOSE (UA) NEGATIVE (NEGATIVE); URINE KETONE 1+ (NEGATIVE); URINE LEUK ESTERASE 1+ (NEGATIVE); URINE NITRITE NEGATIVE (NEGATIVE); URINE PROTEIN 1+ (NEGATIVE); URINE RBC 3 /hpf (0-4); URINE UROBILINOGEN 0.2 mg/dL (0.2-1.0); URINE WBC 7 /hpf (0-5); WHITE BLOOD COUNT 10.9 K/mm3 (4.0-10.0)
[2019-10-21 11:51] LABS: ALBUMIN 3.7 g/dl (3.4-5.0); BILIRUBIN,TOTAL 0.4 mg/dL (0.2-1); BLOOD UREA NITROGEN 9.7 mg/dL (7-18); CREATININE 0.6 mg/dL (0.55-1.3); POTASSIUM 3.8 mmol/L (3.5-5.1); TOT PROT 7.4 g/dl (6.4-8.2)
[2019-10-21] MEDS ORDERED: MAG HYDROX/AL HYDROX/SIMETH 30 ML UNIT-DOSE CUP ONE (12:05)
[2019-10-21] MEDS ORDERED: METOCLOPRAMIDE HCL INJECTION 10 MG/2 ML VIAL IVPB ONE (13:57)
[2019-10-21] MEDS ORDERED: METOCLOPRAMIDE HCL INJECTION 10 MG/2 ML VIAL ONE (14:01)
[2019-10-21 14:54] VITALS: BP 98/76; PULSE 94
== END 2019-10-21 14:54 | disposition home or self-care (01) ==
LOC: JER 10:22
PROC: 3E033GC Introduction of Other Therapeutic Substance into Peripheral Vein, Percutaneous Approach (ICD-10-PCS; principal; 2019-10-21)
PROC: 3E033GC Introduction of Other Therapeutic Substance into Peripheral Vein, Percutaneous Approach (ICD-10-PCS; 2019-10-21)
PROC: 3E033NZ Introduction of Analgesics, Hypnotics, Sedatives into Peripheral Vein, Percutaneous Approach (ICD-10-PCS; 2019-10-21)
DX: O99.611 Diseases of the digestive system complicating pregnancy, first trimester (principal); O26.891 Other specified pregnancy related conditions, first trimester; K52.9 Noninfective gastroenteritis and colitis, unspecified; O23.11 Infections of bladder in pregnancy, first trimester; N30.00 Acute cystitis without hematuria; Z3A.10 10 weeks gestation of pregnancy
CPT/HCPCS: 36415; 76705-TC; 76801-TC; 80053; 81003; 83690; 85025; 87086; 96365; 96375; 99285-25; J0131; Q0162

== ENCOUNTER 2020-05-09 04:35 | Inpatient (IN) | payer OTHER ==
[2020-05-09] MEDS ORDERED: DEXTROSE 5%-LACTATED RINGERS 1,000 ML IV SCH (05:00)
[2020-05-09] MEDS ORDERED: BUTORPHANOL TARTRATE 2 MG/ML VIAL ONE (06:25)
[2020-05-09] MEDS ORDERED: PROMETHAZINE HCL 25 MG/1 ML VIAL ONE (06:25)
[2020-05-09] MEDS ORDERED: BUTORPHANOL TARTRATE 1 MG/ML VIAL IVPB ONE (06:30)
[2020-05-09] MEDS ORDERED: PROMETHAZINE HCL 25 MG/1 ML VIAL IVPB ONE (06:30)
[2020-05-09 06:47] VITALS: BMI 31.8
[2020-05-09 06:55] LABS: BASO % 0.3 % (0-2.0); EOS % 1.2 % (0-4.5); HEMATOCRIT 36.2 % (32.4-45.2); LYMPH % 29.2 % (8-40); MCHC 33.1 g/dl (32.0-36.0); MEAN CELL VOLUME 84.5 fl (80-96); MEAN PLT VOLUME 9.6 fl (7.5-11.1); MONO % 8.7 % (3.8-10.2); NEUT % 60.6 % (42.8-82.8); PLATELET COUNT 192 K/MM3 (134-434); RBC 4.29 M/mm3 (3.60-5.2); RDW 15.6 % (11.6-15.6)
[2020-05-09 07:08] LABS: INR 0.92 (0.83-1.09); PROTHROMBIN TIME (PATIENT) 10.9 SEC (9.7-13.0)
[2020-05-09 07:24] LABS: BLOOD UREA NITROGEN 6.8 mg/dL (7-18); CALCIUM 8.3 mg/dL (8.5-10.1); CREATININE 0.6 mg/dL (0.55-1.3); POTASSIUM 3.6 mmol/L (3.5-5.1)
--- NOTE | 2020-05-09 08:01 | HP ---
Past Medical History - Admission Chief Complaint: Contractions History of Present Illness: 25yo @ 38.6wks here in labor +ctx. No VB/LOF. 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: Alzheimer's, CVA, Dementia, Migraine, Multiple Sclerosis, Peripheral Neuropathy, Parkinson's, Seizure, Syncope, TIA, Vertigo, Other Cardiovascular: No: AFIB, Aneurysm, Aortic Insufficiency, Aortic Stenosis, CAD, CHF, Deep Vein Thrombosis, HTN, Hyperlipdemia, MT, Mitral Insufficiency, Mitral Stenosis, Murmur, Pulmonary Hypertension, Other Gastrointestinal: No: Ascites, Cancer, Constipation, Crohn's Disease, Diverticulitis, Diverticulosis, Esophageal Varices, Gastritis, GERD, GI Bleed, Hemorrhoids, Hiatal Hernia, Inflamatory Bowel Disease, Irritable Bowel Disease, Pancreatitis, Peptic Ulcer Disease, Ulcerative Colitis, Other ...: 4 ...Para: 1 ...Term: 1 ...: 0 ...Spon : 0 ...Induced : 2 ...Living Children: 1 ...Multiple Gestation: 0 ...LMP: 08/11/19 ... Weeks Gestation by Dates: 38.6 ...EDC by Dates: 05/17/20 ...EDC by Sono: 05/15/20 Heme/Onc: No: Anemia, B12 Deficiency, Bleeding Disorder, Cancer, Current Chemotherapy, Current Radiation Therapy, Hemochromatosis, Hypercoaguable State, Myeloproliferative Synd, Sickle Cell Disease, Sickle Cell Trait, Thrombocytopenia, Other Infectious Disease: No: AIDS, C-Diff, Herpes Zoster, HIV, MRSA, STD's, Tuberculosis, VREF, Other Psych: No: Addictions, Anxiety, Bipolar, Depression, Panic, Psychosis, Schizophrenia, Other Musculoskeletal: No: Bursitis, Chronic low back pain, Hemiparesis, Hemiplegia, Osteoarthritis, Paraplegia, Other Rheumatology: No: Fibromyalgia, Gout, Lupus, Rheumatoid Arthritis, Sarcoidosis, Vasculitis, Other ENT: No: Allergic Rhinitis, Sinusitis, Other Endocrine: No: Noble's Disease, Diane's Disease, Diabetes Insipidus, Diabetes Mellitus, Hyperparathyroidism, Hyperthyroidism, Hypothyroidism, Osteopenia, SIADH, Other Dermatology: No: Basal Cell, Cellulitis, Eczema, Melanoma, Psoriasis, Squamous Cell, Other - Past Surgical History Past Surgical History: Yes: None Hx Myomectomy: No Hx Transabdominal Cerclage: No - Smoking History Smoking history: Never smoked Have you smoked in the past 12 months: No Aproximately how many cigarettes per day: 0 - Alcohol/Substance Use Hx Alcohol Use: No History of Substance Use: reports: None - Social History History of Recent Travel: No Home Medications - Allergies Allergies/Adverse Reactions: Allergies Allergy/AdvReac Type Severity Reaction Status Date / Time Penicillins Allergy Severe Rash Verified 05/09/20 05:41 - Home Medications Home Medications: Ambulatory Orders Famotidine [Pepcid -] 40 mg PO DAILY #7 tablet 10/21/19 Mag Hydrox/Aluminum Hyd/Simeth [Maalox Advanced Suspension] 30 ml PO Q8H PRN #200 ml 10/21/19 Nitrofurantoin Monohyd/M-Cryst [Macrobid -] 100 mg PO BID #14 capsule 10/21/19 Ondansetron [Zofran *Odt*] 4 mg SL Q8H PRN #21 od.tablet 10/21/19 Mv-Mn/Iron/FA/Herbal/Digestive [ One Tablet] 1 tab PO DAILY 05/09/20 Valacyclovir HCl [Valtrex] 1 tab PO BID 05/09/20 Physical Exam - Maternity Vital Signs: Vital Signs Temperature 98.4 F 05/09/20 06:05 Pulse Rate 75 05/09/20 06:05 Respiratory Rate 18 05/09/20 06:05 Blood Pressure 124/63 05/09/20 06:05 O2 Sat by Pulse Oximetry (%) - Labs Lab Results: CBC, BMP 05/09/20 06:16 05/09/20 06:20 Assessment/Plan 25yo @ 38.6wks here in labor Admit to L&D IVFs Stadol prn, epidural prn AROM/pitocin prn Cat I tracing Anticipate NIMO Atkinson MD
[2020-05-09] MEDS ORDERED: OXYTOCIN 20 UNITS in 0.9% NS 20 UNIT/1,000 ML INFUS.BAG IV ONE ×2 (08:39→10:24)
--- NOTE | 2020-05-09 09:23 | PN ---
Progress Note (short form) - Note Progress Note: 25 yrs , 38.6/7 wks in labor ,management of labor tranferred by Dr Atkinson to sc 9.07AM 9/100/AROM-clear /vx-1 fht 120-130 cat-1 , UC 2-3 min Plan expect vag del Selected Entries 05/09/20 05/09/20 06:05 08:00 Temperature 98.4 F Pulse Rate 75 77 Blood Pressure 124/63 118/61 9.30 AM 10//vx +2-pushing uc 2-3 min, fhr 120-90 early decel , cat-1
[2020-05-09] MEDS: OXYTOCIN 20 UNITS in 0.9% NS 20 UNIT/1,000 ML INFUS.BAG IV SCH ×2 (09:50→11:02)
[2020-05-09] MEDS ORDERED: ACETAMINOPHEN 325 MG TABLET (FP) PO PRN (10:16)
[2020-05-09] MEDS ORDERED: WITCH HAZEL 50% (TUCKS) 40 PAD/JAR PAD TP PRN (10:16)
[2020-05-09] MEDS ORDERED: BENZOCAINE 28 GM HEMORRHOIDAL OINTMENT TP PRN (10:16)
[2020-05-09] MEDS ORDERED: BISACODYL 10 MG SUPP.RECT RC PRN (10:16)
[2020-05-09] MEDS ORDERED: METHYLERGONOVINE MALEATE 0.2 MG/1 ML AMP IM PRN (10:16)
[2020-05-09] MEDS ORDERED: BENZOCAINE 20% 57 GM BOTTLE TP PRN (10:16)
[2020-05-09 10:17] LABS: CORD BASE EXCESS -3.6 mmol/L (0-2); CORD HCO3 19.2 mmHg (20-29); CORD PCO2 28.8 mmHg (30-78); CORD pH 7.441 (7.14-7.44)
[2020-05-09] MEDS ORDERED: IBUPROFEN 600 MG TABLET (FP) PO ONE (10:24)
[2020-05-09] MEDS ORDERED: ACETAMINOPHEN 325 MG TABLET (FP) ONE (10:24)
--- NOTE | 2020-05-09 10:28 | PN ---
Delivery - Delivery Vaginal Delivery: No Problems, Spontaneous (, vx, franny position shoulder delievered without difficulty , oral & nasal suction done. trivascular crd, cord segment for cord gas & cord blood taken. 1st degree laceration sutured with chr catgut #2 under local anesthesia .) Type of Anesthesia: Local Episiotomy/Laceration: Vaginal Extension/lac, 1st degree Delivery, Single - Stages of Labor Date 1st Stage Initiatied: 05/09/20 Time 1st Stage Initiated: 03:00 Date 2nd Stage Initiated: 05/09/20 Time 2nd Stage Initiated: 09:30 Date of Delivery: 05/09/20 Time of Delivery: 09:42 Date Placenta Delivered: 05/09/20 Time Placenta Delivered: 09:50 Placenta: Yes: Manual Removal, Uterine Exploration - Condition of Savings Teller/Germination Testing Manager Present: No Gender: Female Weight: 8 lb Position: Left, OA Total Hours ROM (Hrs/Mins): 43 min - 1 Minute Total Score: 9 5 Minutes Total Score: 9 - [place] Feeding Plan Initial Plan: Elected not to breastfeed exclusively throughout hospitalization Remarks - Remarks Remarks: 25 yrs , 38.6/7 wks in labor , gbs neg pnc at , [facility] Stadol + phenrgan ome time was given for labor analgesia . intrapartum course uneventful
[2020-05-09] MEDS: IBUPROFEN 600 MG TABLET (FP) PO PRN (10:30)
[2020-05-09] MEDS: FERROUS SO4 325 MG TABLET (FP) PO SCH (17:47)
--- NOTE | 2020-05-10 07:25 | PN ---
Progress Note (short form) - Note Progress Note: ppd1 s/p . doing well. no excess vaginal bleeding CBC, BMP 05/09/20 06:16 05/09/20 06:20 Last Vital Signs Temp Pulse Resp BP Pulse Ox 98.7 F 70 18 110/60 100 05/10/20 05:56 05/10/20 05:56 05/10/20 05:56 05/10/20 05:56 05/09/20 11:15 abdomen soft, no cva , uterus firm lochia mild no calf tenderness plan ambulate , cbc plan for d/c home in am
[2020-05-10] MEDS: FERROUS SO4 325 MG TABLET (FP) PO SCH ×2 (09:03→17:33)
[2020-05-10] MEDS: PRENATAL VITAMINS W/ FOLIC ACID TABLET (FP) PO SCH (09:03)
[2020-05-10 09:48] LABS: BASO % 0.3 % (0-2.0); EOS % 0.7 % (0-4.5); HEMATOCRIT 36.4 % (32.4-45.2); HEMOGLOBIN 11.7 GM/dL (10.7-15.3); LYMPH % 26.8 % (8-40); MCH 27.8 pg (25.7-33.7); MCHC 32.1 g/dl (32.0-36.0); MEAN CELL VOLUME 86.6 fl (80-96); MEAN PLT VOLUME 10.5 fl (7.5-11.1); MONO % 8.6 % (3.8-10.2); NEUT % 63.6 % (42.8-82.8); PLATELET COUNT 182 K/MM3 (134-434); RDW 15.5 % (11.6-15.6); WHITE BLOOD COUNT 11.6 K/mm3 (4.0-10.0)
[2020-05-10] MEDS ORDERED: DIPHTH,PERTUSS(ACELL),TET 0.5 ML DISP.SYRIN IM ONE (10:00)
[2020-05-10] MEDS ORDERED: SENNOSIDES/DOCUSATE COMBO (SENNA PLUS) TABLET (UD) PO PRN (22:00)
--- NOTE | 2020-05-11 06:29 | DS ---
Physical Exam-NIGHT AUDITOR Vital Signs: Vital Signs Temperature 98 F 05/10/20 20:38 Pulse Rate 66 05/10/20 20:38 Respiratory Rate 20 05/10/20 20:38 Blood Pressure 119/72 05/10/20 20:38 O2 Sat by Pulse Oximetry (%) 99 05/10/20 20:38 Constitutional: Yes: Well Nourished Eyes: Yes: WNL HENT: Yes: WNL Neck: Yes: WNL Cardiovascular: Yes: WNL Respiratory: Yes: WNL Gastrointestinal: Yes: WNL ...Rectal Exam: Yes: WNL Renal/: Yes: WNL ....Post : Yes: Uterus firm, Moderate lochia rubra ( perineum healing , stiches intact) Breast(s): Yes: WNL Musculoskeletal: Yes: WNL Extremities: Yes: WNL. No: Calf Tenderness Edema: Yes Edema: LLE: Trace, RLE: Trace Integumentary: Yes: WNL, Tattoos Neurological: Yes: WNL, Alert, Oriented ...Motor Strength: WNL Psychiatric: Yes: WNL, Alert, Oriented Labs: CBC, BMP 05/10/20 07:13 05/09/20 06:20 Delivery - Delivery Vaginal Delivery: No Problems, Spontaneous (, vx, franny position shoulder delievered without difficulty , oral & nasal suction done. trivascular crd, cord segment for cord gas & cord blood taken. 1st degree laceration sutured with chr catgut #2 under local anesthesia .) Type of Anesthesia: Local Episiotomy/Laceration: Vaginal Extension/lac, 1st degree EBL (cc): 350 Delivery, Single - Stages of Labor Date 1st Stage Initiatied: 05/09/20 Time 1st Stage Initiated: 03:00 Date 2nd Stage Initiated: 05/09/20 Time 2nd Stage Initiated: 09:30 Date of Delivery: 05/09/20 Time of Delivery: 09:42 Time Placenta Delivered: 09:50 Placenta: Yes: Manual Removal, Uterine Exploration - Condition of Concrete Products Dispatcher/Script Developer Present: No Gender: Female Weight: 8 lb Position: Left, OA Total Hours ROM (Hrs/Mins): 43 min - 1 Minute Total Score: 9 5 Minutes Total Score: 9 - [place] Feeding Plan Initial Plan: Elected not to breastfeed exclusively throughout hospitalization Remarks - Remarks Remarks: 25 yrs , 38.6/7 wks in labor , gbs neg pnc at , [facility] Stadol + phenrgan ome time was given for labor analgesia . intrapartum course uneventful pp course unevebtful. 'discharge today Discharge Summary Problems reviewed: Yes Reason For Visit: LABOR - Instructions Diet, Activity, Other Instructions: Post Instructions DIET: Continue good diet high in protein, calcium, and iron rich foods. Drink at least eight (8) glasses of water daily in addition to other fluids. ct Regular diet _ MEDICATIONS: Continue vitamins and iron as previously directed. Motrin and Tylenol may be taken for minor discomfort. ACTIVITY: Mild to moderate exercise may be started in two (2) weeks. Take frequent rest periods. Resume normal activity after six (6) week check up. WOUND CARE OF OPERATIVE SITE: Continue use of perineal bottle until vaginal discharge stops. Keep area clean. Shower daily. Keep abdominal wound dry. Report any drainage or redness to physician. Tub baths, tampons and douches are not permitted for [address] Breast feeding & or Bottle feeding BREAST CARE: (For those that are not ): If engorgement occurs: Wear tight fitting bra. Take Tylenol or Motrin for pain. Apply cold packs (ice in bags to each breast ) FAMILY PLANNING: There are many control alternatives to pursue and they should be discussed at your first office visit. You may resume sexual activity after your six (6) week check up. (Remember, is not a contraceptive) NEXT PHYSICIAN APPOINTMENT: Be certain to call for a three (3) week appointment, unless otherwise directed. Call Clinic or got to Emergency Dept if you have any of the following: Heavy vaginal bleeding Painful urination Leg pain Unusual odor noted to vaginal bleeding High fever Red streaking noted on breast Referrals: Irma Atkinson MD [Family Provider] - Rabia Peralta MD [Staff Physician] - - Home Medications Comprehensive Discharge Medication List: Ambulatory Orders Famotidine [Pepcid -] 40 mg PO DAILY #7 tablet 10/21/19 Acetaminophen [Tylenol .Regular Strength -] 650 mg PO Q3H PRN tablet 05/09/20 Ferrous Sulfate [Feosol] 325 mg PO DAILY #30 tab 08/06/20 Ibuprofen [Motrin -] 600 mg PO Q4H PRN #20 tablet 05/09/20 Mv-Mn/Iron/FA/Herbal/Digestive [ One Tablet] 1 tab PO DAILY 05/09/20 Vitamins (Sjr) - 1 tab PO DAILY #30 tablet 05/09/20 Valacyclovir HCl [Valtrex] 1 tab PO BID 05/09/20 Witch Carrie 50% (Tucks) [Tucks Pads -] 1 pad TP PRN PRN pad 05/09/20
[2020-05-11] MEDS: FERROUS SO4 325 MG TABLET (FP) PO SCH (09:53)
[2020-05-11] MEDS: IBUPROFEN 600 MG TABLET (FP) PO PRN (09:53)
[2020-05-11] MEDS: PRENATAL VITAMINS W/ FOLIC ACID TABLET (FP) PO SCH (09:54)
[2020-05-11 12:55] VITALS: BP 113/57; PULSE 75; TEMP 97.9
== END 2020-05-11 13:40 | disposition home or self-care (01) | DRG 560 ==
LOC: JDEL 04:35 → JLDR 06:05 → J3W 14:30
PROVIDERS: ADMIT Obstetrics & Gynecology; ATTEND Obstetrics & Gynecology
PROC: 10E0XZZ Delivery of Products of Conception, External Approach (ICD-10-PCS; principal; 2020-05-09)
PROC: 0HQ9XZZ Repair Perineum Skin, External Approach (ICD-10-PCS; 2020-05-09)
DX: O70.0 First degree perineal laceration during delivery (principal); Z3A.38 38 weeks gestation of pregnancy; Z37.0 Single live birth
CPT/HCPCS: 36415; 36600; 59025; 59409; 80048; 82803; 85025; 85610; 85730; 86780; 86850; 86900; 86901; 87389; 90715; U0003

== ENCOUNTER 2023-11-24 07:50 | Emergency (ER) | payer OTHER ==
[2023-11-24 08:08] VITALS: BP 91/61; PULSE 95; RESP 18; TEMP 98.4; BMI 27.1
[2023-11-24] MEDS ORDERED: ACETAMINOPHEN INJECTION 100 ML IVPB ONE (09:01)
[2023-11-24] MEDS ORDERED: FAMOTIDINE 20 MG/50 ML IVPB 20 MG/50 ML MG IVPB ONE (09:02)
[2023-11-24] MEDS ORDERED: MAG HYDROX/AL HYDROX/SIMETH 30 ML UNIT-DOSE CUP ONE (09:02)
[2023-11-24] MEDS: MAG HYDROX/AL HYDROX/SIMETH 30 ML UNIT-DOSE CUP PO ONE (09:18)
[2023-11-24] MEDS: SODIUM CHLORIDE 1,000 ML IV STA (09:18)
[2023-11-24] MEDS: FAMOTIDINE 20 MG/50 ML IVPB 20 MG/50 ML MG IVPB ONE (09:19)
[2023-11-24] MEDS: ACETAMINOPHEN 1000 MG/100 ML BAG IVPB ONE (09:19)
[2023-11-24 09:23] LABS: BASO % 0.4 % (0-2.0); EOS % 0.9 % (0-4.5); HEMATOCRIT 37.1 % (32.4-45.2); HEMOGLOBIN 12.3 GM/dL (10.7-15.3); LYMPH % 12.4 % (8-40); MCHC 33.3 g/dl (32.0-36.0); MEAN PLT VOLUME 8.6 fl (7.5-11.1); MONO % 11.8 % (3.8-10.2); NEUT % 74.5 % (42.8-82.8); PLATELET COUNT 205 10^3/uL (134-434); RBC 4.41 M/mm3 (3.60-5.2); RDW 13.3 % (11.6-15.6); WHITE BLOOD COUNT 5.5 K/mm3 (4.0-10.0)
[2023-11-24 09:48] LABS: CALCIUM 8.9 mg/dL (8.5-10.1)
[2023-11-24 09:49] LABS: ALBUMIN 3.9 g/dl (3.4-5.0); BLOOD UREA NITROGEN 10.4 mg/dL (7-18)
[2023-11-24 09:52] LABS: CREATININE 0.7 mg/dL (0.55-1.3)
[2023-11-24 09:53] LABS: BILIRUBIN,TOTAL 0.7 mg/dL (0.2-1); TOT PROT 7.2 g/dl (6.4-8.2)
== END 2023-11-24 13:07 | disposition home or self-care (01) ==
LOC: JER 07:50
PROC: 3E033GC Introduction of Other Therapeutic Substance into Peripheral Vein, Percutaneous Approach (ICD-10-PCS; principal; 2023-11-24)
PROC: 3E033NZ Introduction of Analgesics, Hypnotics, Sedatives into Peripheral Vein, Percutaneous Approach (ICD-10-PCS; 2023-11-24)
DX: R07.9 Chest pain, unspecified (principal); K21.9 Gastro-esophageal reflux disease without esophagitis
CPT/HCPCS: 36415; 71046-TC-FY; 80053; 83690; 84484; 84703; 85025; 93005; 93010; 99285-25; J0131

== ENCOUNTER 2024-09-12 16:37 | Emergency (ER) | payer OTHER ==
[2024-09-12 16:47] VITALS: BP 106/69; PULSE 82; RESP 20; TEMP 98.5; BMI 29.4
[2024-09-12] MEDS ORDERED: ONDANSETRON 4 MG/2 ML VIAL ONE (17:42)
[2024-09-12 17:46] LABS: BASO % 0.5 % (0-2.0); EOS % 1.6 % (0-4.5); HEMATOCRIT 34.1 % (32.4-45.2); HEMOGLOBIN 11.2 GM/dL (10.7-15.3); MCH 27.8 pg (25.7-33.7); MCHC 32.7 g/dl (32.0-36.0); MEAN CELL VOLUME 84.9 fl (80-96); MEAN PLT VOLUME 8.9 fl (7.5-11.1); MONO % 6.5 % (3.8-10.2); NEUT % 63.4 % (42.8-82.8); PLATELET COUNT 227 10^3/uL (134-434); RBC 4.02 M/mm3 (3.60-5.2); RDW 13.4 % (11.6-15.6); WHITE BLOOD COUNT 8.3 K/mm3 (4.0-10.0)
[2024-09-12] MEDS: SODIUM CHLORIDE 0.9% 500 ML INFUS.BAG IV ONE (17:51)
[2024-09-12] MEDS: ONDANSETRON 4 MG/2 ML VIAL IVPUSH ONE (17:51)
[2024-09-12 18:26] LABS: BLOOD UREA NITROGEN 9.8 mg/dL (7-18); CALCIUM 9.5 mg/dL (8.5-10.1); CREATININE 0.6 mg/dL (0.55-1.3); POTASSIUM 4.3 mmol/L (3.5-5.1)
== END 2024-09-12 19:36 | disposition home or self-care (01) ==
LOC: JER 16:37
PROC: 3E033GC Introduction of Other Therapeutic Substance into Peripheral Vein, Percutaneous Approach (ICD-10-PCS; principal; 2024-09-12)
DX: O21.9 Vomiting of pregnancy, unspecified (principal); Z3A.00 Weeks of gestation of pregnancy not specified
CPT/HCPCS: 36415; 80048; 85025; 96374; 99284-25